=== PATIENT | female | born 1935 | race Caucasian/White ===

== ENCOUNTER 2019-04-30 07:52 | Outpatient (CLI) | payer MEDICARE, OTHER ==
[2014-02-10 18:36] VITALS: BP 135/68
[2019-04-30 07:53] LABS: A1C 5.2 % (<5.7)
[2019-04-30 07:54] LABS: BASOPHILS % 0.3 % (0.0-1.5); NEUTROPHILS # 4.3 # k/uL (1.4-7.7)
[2019-04-30 08:21] LABS: eGFR (Non-African) > 60
== END 2019-04-30 07:54 ==
LOC: LAB 07:52
PROVIDERS: ATTEND Family Medicine
DX: I10 Essential (primary) hypertension (principal); D64.9 Anemia, unspecified; D53.9 Nutritional anemia, unspecified
CPT/HCPCS: 80053; 83036; 84443; 85025

== ENCOUNTER 2019-05-28 07:39 | Outpatient (CLI) | payer MEDICARE, OTHER ==
[2014-02-10 18:36] VITALS: BP 135/68
[2019-05-28 10:24] LABS: BASOPHILS % 0.3 % (0.0-1.5); NEUTROPHILS # 4.2 # k/uL (1.4-7.7)
[2019-05-28 10:25] LABS: A1C 5.4 % (<5.7); eGFR (Non-African) > 60
== END 2019-05-28 07:42 ==
LOC: LAB 07:39
PROVIDERS: ATTEND Family Medicine
DX: I73.9 Peripheral vascular disease, unspecified (principal)
CPT/HCPCS: 80053; 83036; 85025

== ENCOUNTER 2019-06-13 07:50 | Outpatient (CLI) | payer MEDICARE, OTHER ==
[2014-02-10 18:36] VITALS: BP 135/68
== END 2019-06-13 07:53 ==
LOC: LAB 07:50
PROVIDERS: ATTEND Family Medicine
DX: F02.81 Dementia in other diseases classified elsewhere, unspecified severity, with behavioral disturbance (principal); F33.1 Major depressive disorder, recurrent, moderate
CPT/HCPCS: 36415; 80164; P9604

== ENCOUNTER 2019-08-13 12:04 | Outpatient (CLI) | payer MEDICARE, OTHER ==
[2014-02-10 18:36] VITALS: BP 135/68
== END 2019-08-13 12:09 ==
LOC: LAB 12:04
PROVIDERS: ATTEND Family Medicine
DX: I10 Essential (primary) hypertension (principal); D53.9 Nutritional anemia, unspecified; E78.5 Hyperlipidemia, unspecified
CPT/HCPCS: 36415; 80164; P9604

== ENCOUNTER 2019-10-10 06:20 | Outpatient (CLI) | payer MEDICARE, OTHER ==
[2014-02-10 18:36] VITALS: BP 135/68
== END 2019-10-10 06:25 ==
LOC: LAB 06:20
PROVIDERS: ATTEND Family Medicine
DX: G30.1 Alzheimer's disease with late onset (principal); F02.81 Dementia in other diseases classified elsewhere, unspecified severity, with behavioral disturbance
CPT/HCPCS: 36415; 80164; P9604